=== PATIENT | female | born 2000 ===

== ENCOUNTER 2023-03-29 13:40 | Emergency (ER) | payer SELFPAY ==
[2023-03-29 13:44] VITALS: BP 126/90; PULSE 77; RESP 19; TEMP 36.6; O2SAT 100
--- NOTE | 2023-03-29 15:36 | PC.NURSE ---
patient left prior to being seen. patient ambulatory and alert and oriented x4.
== END 2023-03-29 16:00 | disposition left against medical advice (07) ==
LOC: ANHED 15:53
PROVIDERS: PCP Family Medicine
DX: R11.2 Nausea with vomiting, unspecified (principal)
CPT/HCPCS: 99199